=== PATIENT | male | born 1985 | race African-American/Black ===

== ENCOUNTER 2018-10-10 19:04 | Emergency (ER) | payer SELFPAY ==
[~2018-10-10] VITALS: Ht 180.3 cm; Wt 93.0 kg
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
[2018-10-10] MEDS ORDERED: KETOROLAC TROMETHAMINE INJ 30 MG/ML VIAL ONE (19:42)
[2018-10-10] MEDS ORDERED: KETOROLAC TROMETHAMINE INJ 60 MG/2 ML VIAL IM ONE (20:00)
[2018-10-10] MEDS ORDERED: HYDROCODONE/APAP 5/325MG 1 EACH TABLET ONE (21:20)
[2018-10-10] MEDS ORDERED: HYDROCODONE/APAP 5/325MG 1 EACH TABLET PO ONE (21:30)
--- NOTE | 2018-10-10 22:00 | NUR ---
PT RESTING IN BED, NAD NOTED. WILL CONTINUE TO MONITOR.
--- NOTE | 2018-10-10 22:40 | NUR ---
Patient discharged to home in stable condition. Written and verbal after care instructions given. Patient verbalizes understanding of instruction.
[2018-10-10 23:04] VITALS: BP 142/79
== END 2018-10-10 23:04 | disposition home or self-care (01) ==
LOC: ER 19:09
DX: S16.1XXA Strain of muscle, fascia and tendon at neck level, initial encounter (principal); S63.681A Other sprain of right thumb, initial encounter; S09.8XXA Other specified injuries of head, initial encounter; M62.830 Muscle spasm of back; Z98.890 Other specified postprocedural states; V43.52XA Car driver injured in collision with other type car in traffic accident, initial encounter; Y93.89 Activity, other specified; Y92.413 State road as the place of occurrence of the external cause; Y99.8 Other external cause status
CPT/HCPCS: 70450; 72050; 72074; 72110; 73130; 96372; 99284; J1885

== ENCOUNTER 2019-07-18 11:05 | Emergency (ER) | payer OTHER ==
[~2019-07-18] VITALS: Ht 185.4 cm; Wt 113.4 kg
--- NOTE | 2019-07-18 11:23 | NUR ---
CAME IN FOR COUGH AND CONGESTION X 3 DAYS, TO ER BED 11, HOOKED TO MONITOR, CHANGED TO HOSP GOWN, PROVIDED W WARM BLANKET, AOx 4, BREATHING EVEN AND UNLABORED, NAD NOTED. AWAITING MD BECKHAM
--- NOTE | 2019-07-18 11:28 | NUR ---
DR PRECIADO AT BEDSIDE
[2019-07-18 12:05] LABS: BASOPHILS % (AUTO) 0.4 % (0.0-2.0); EOSINOPHILS % (AUTO) 4.8 % (0.0-6.0); HEMATOCRIT 44 % (39-51); HEMOGLOBIN 15.2 g/dL (13.5-17.5); LYMPHOCYTES # (AUTO) 1.1 /CMM (0.8-4.8); LYMPHOCYTES % (AUTO) 11.8 % (20.0-44.0); MEAN CORPUSCULAR HGB CONC 35 g/dl (31.0-36.0); MEAN CORPUSCULAR VOLUME 92 fL (80-96); MONOCYTES # (AUTO) 0.8 /CMM (0.1-1.30); MONOCYTES % (AUTO) 8.9 % (2.0-12.0); NEUTROPHILS # (AUTO) 6.7 /CMM (1.8-8.9); NEUTROPHILS % (AUTO) 74.1 % (43.0-81.0); PLATELET COUNT (AUTO) 233 /CMM (150-450); RED BLOOD CELL COUNT(AUTO) 4.76 MIL/uL (4.5-6.0)
[2019-07-18 12:20] LABS: CALCIUM, SERUM 9.2 mg/dL (8.5-10.1); POTASSIUM 3.8 mmol/L (3.5-5.1)
[2019-07-18 12:26] LABS: ALBUMIN 4.1 g/dL (3.4-5.0); BILIRUBIN,DIRECT 0.2 mg/dL (0.0-0.2); BILIRUBIN,TOTAL 0.9 mg/dL (0.2-1.0); TOTAL PROTEIN, SERUM 7.7 g/dL (6.4-8.2)
[2019-07-18 12:33] LABS: APPEARANCE,URINE Clear (CLEAR); BILIRUBIN,URINE Negative (NEGATIVE); BLOOD, URINE Trace-intact Ery/uL (NEGATIVE); COLOR,URINE Yellow (YELLOW); KETONES,URINE Negative (NEGATIVE); LEUKOCYTE ESTERASE ,URINE Negative (NEGATIVE); NITRITE, URINE Negative (NEGATIVE); PH,URINE 5.5 (5.0-8.0); PROTEIN,URINE Trace mg/dl (NEGATIVE); UGLUCOSE Negative (NEGATIVE); UROBILINOGEN,URINE 0.2 EU/dL (0.2)
[2019-07-18 12:35] LABS: BACTERIA,URINE Few /HPF (None Seen); SQUAMOUS EPITHELIAL CELL,UR Rare /HPF (None Seen); WBC,URINE 0-2 /HPF (0-3)
--- NOTE | 2019-07-18 13:52 | NUR ---
Patient discharged to home in stable condition. Written and verbal after care instructions given. Patient verbalizes understanding of instruction.
[2019-07-18 13:53] VITALS: BP 134/60
== END 2019-07-18 13:53 | disposition home or self-care (01) ==
LOC: ER 11:07
DX: J20.9 Acute bronchitis, unspecified (principal); Z87.442 Personal history of urinary calculi; Z98.890 Other specified postprocedural states
CPT/HCPCS: 36415; 71045-TC; 74021; 80048-TC; 80076-TC; 81000-TC; 83690-TC; 85025-TC

== ENCOUNTER 2021-02-26 15:50 | Emergency (ER) | payer OTHER ==
[~2021-02-26] VITALS: Ht 177.8 cm; Wt 95.3 kg
[2021-02-26 16:14] VITALS: BP 142/95
[2021-02-26] MEDS ORDERED: HYDROCODONE/APAP 5/325MG TABLET ONE (16:43)
[2021-02-26] MEDS ORDERED: HYDROCODONE/APAP 5/325MG TABLET PO ONE (17:00)
[2021-02-26] MEDS ORDERED: IBUP-1955 PO (17:39)
[2021-02-26] MEDS ORDERED: TRAM50TA2 PO (17:39)
--- NOTE | 2021-02-26 17:50 | NUR ---
Sling in placed on left arm. Patient discharged to home in stable condition. Written and verbal after care instructions given. Patient verbalizes understanding of instruction.
== END 2021-02-26 17:50 | disposition home or self-care (01) ==
LOC: ER 15:52
DX: M25.512 Pain in left shoulder (principal); Z87.442 Personal history of urinary calculi; Z98.890 Other specified postprocedural states; Z79.899 Other long term (current) drug therapy
CPT/HCPCS: 73030-TC